=== PATIENT | male | born 1965 | race Caucasian/White ===

== ENCOUNTER 2017-09-01 16:59 | Emergency (ER) | payer OTHER ==
[~2017-09-01] VITALS: Ht 177.8 cm; Wt 84.0 kg
[2017-09-01 17:02] VITALS: BP 142/81; PULSE 92; RESP 16; TEMP 97.9; O2SAT 97
[2017-09-01] MEDS ORDERED: KETOROLAC TROMETHAMINE 60 MG/2 ML (IM) VIAL IM ONE (17:30)
--- NOTE | 2017-09-01 17:47 | PD ---
HPI Chief Complaint: Injury Time Seen by Provider: 16:00 Travel History International Travel<30 days: No Contact w/Intl Traveler<30days: No Traveled to known affect area: No History of Present Illness HPI 52 year old male here with left shoulder pain 2 weeks. He cannot recall specific injury. 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 He reports the pain in the anterior portion of the shoulder worse with range of motion. Pain is relieved by holding the shoulder immobilized against chest. He denies chest pain, shortness breath, paresthesia or weakness of the extremity. Pain severity is moderate. PFSH Past Medical History Medical History: Denies Significant Hx Hx Anticoagulant Therapy: No Diabetes: No Influenza Vaccination: No Social History Alcohol Use: Yes (ONE BEER A DAY) Tobacco Use: Yes (1.5 PPD) Substance Use: No Allergies-Medications (Allergen,Severity, Reaction): Coded Allergies: No Known Allergies (Unverified , 09/01/17) Reported Meds & Prescriptions Reported Meds & Active Scripts Active No Active Prescriptions or Reported Medications Review of Systems Except as stated in HPI: all other systems reviewed are Neg General / Constitutional: No: Fever Eyes: No: Visual changes HENT: No: Headaches Cardiovascular: No: Chest Pain or Discomfort Respiratory: No: Shortness of Breath Gastrointestinal: No: Abdominal Pain Genitourinary: No: Dysuria Neurologic: No: Weakness Physical Exam Narrative GENERAL: Alert male. crying out in pain when he moves the left upper extremity. SKIN: Warm and dry. HEAD: Normocephalic. EYES: No scleral icterus. No injection or drainage. NECK: Supple, trachea midline. No JVD or lymphadenopathy. CARDIOVASCULAR: Regular rate and rhythm without murmurs, gallops, or rubs. RESPIRATORY: Breath sounds equal bilaterally. No accessory muscle use. GASTROINTESTINAL: Abdomen soft, non-tender, nondistended. MUSCULOSKELETAL: No cyanosis, or edema. Left shoulder: Acutely tender to even light palpation of the shoulder. No deformity noted. Arm is held in light flexion against the chest. Limited range of motion due to pain in the shoulder. 2+ distal pulses. Normal sensation. Brisk cap refill. BACK: Nontender without obvious deformity. No CVA tenderness. Data Data Last Documented VS Vital Signs Date Time Temp Pulse Resp B/P (MAP) Pulse Ox O2 Delivery O2 Flow Rate FiO2 09/01/17 18:00 97 09/01/17 17:55 97 16 09/01/17 17:02 97.9 Orders Orders Ketorolac Inj (Toradol Inj) (09/01/17 17:30) Shoulder, Limited(2vws) (09/01/17 ) Electrocardiogram (09/01/17 17:48) Basic Metabolic Panel (Bmp) (09/01/17 17:48) Ckmb (Isoenzyme) Profile (09/01/17 17:48) Complete Blood Count With Diff (09/01/17 17:48) Magnesium (Mg) (09/01/17 17:48) Prothrombin Time / Inr (Pt) (09/01/17 17:48) Act Partial Throm Time (Ptt) (09/01/17 17:48) Troponin I (09/01/17 17:48) Chest, Single Ap (09/01/17 17:48) Ecg Monitoring (09/01/17 17:48) Bilateral Bp Monitoring (09/01/17 17:48) Iv Access Insert/Monitor (09/01/17 17:48) Oximetry (09/01/17 17:48) Oxygen Administration (09/01/17 17:48) Sodium Chloride 0.9% Flush (Ns Flush) (09/01/17 18:00) Ondansetron Inj (Zofran Inj) (09/01/17 18:00) CKMB (09/01/17 17:55) CKMB% (09/01/17 17:55) Labs Laboratory Tests Test 09/01/17 17:55 White Blood Count 16.9 TH/MM3 Red Blood Count 5.03 MIL/MM3 Hemoglobin 15.4 GM/DL Hematocrit 46.0 % Mean Corpuscular Volume 91.5 FL Mean Corpuscular Hemoglobin 30.7 PG Mean Corpuscular Hemoglobin Concent 33.5 % Red Cell Distribution Width 12.8 % Platelet Count 302 TH/MM3 Mean Platelet Volume 7.5 FL Neutrophils (%) (Auto) 74.4 % Lymphocytes (%) (Auto) 17.8 % Monocytes (%) (Auto) 4.2 % Eosinophils (%) (Auto) 2.3 % Basophils (%) (Auto) 1.3 % Neutrophils # (Auto) 12.6 TH/MM3 Lymphocytes # (Auto) 3.0 TH/MM3 Monocytes # (Auto) 0.7 TH/MM3 Eosinophils # (Auto) 0.4 TH/MM3 Basophils # (Auto) 0.2 TH/MM3 CBC Comment AUTO DIFF Differential Comment AUTO DIFF CONFIRMED Prothrombin Time 10.0 SEC Prothromb Time International Ratio 0.9 RATIO Activated Partial Thromboplast Time 26.3 SEC Blood Urea Nitrogen 16 MG/DL Creatinine 1.10 MG/DL Random Glucose 103 MG/DL Calcium Level 8.7 MG/DL Magnesium Level 2.2 MG/DL Sodium Level 139 MEQ/L Potassium Level 3.6 MEQ/L Chloride Level 104 MEQ/L Carbon Dioxide Level 28.2 MEQ/L Anion Gap 7 MEQ/L Estimat Glomerular Filtration Rate 71 ML/MIN Total Creatine Kinase 112 U/L Creatine Kinase MB 0.9 NG/ML Troponin I LESS THAN 0.02 NG/ML MDM Medical Decision Making Medical Screen Exam Complete: Yes Emergency Medical Condition: Yes Interpretation(s) EKG: Sinus rhythm rate of [address] elevation or depression CBC: Unremarkable with the exception of WBC 16.9 BMP: Unremarkable Troponin: 0.2 Chest x-ray: No abnormality Shoulder x-ray: No fracture or dislocation Differential Diagnosis Rotator cuff injury, shoulder strain, ACS although unlikely, vasovagal response Narrative Course 52-year-old male here with nontraumatic left shoulder pain and 2 weeks. 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 He is acutely tender within the left shoulder is palpated even with light touch. Patient was originally evaluated and sent for x -ray of the shoulder. When he received a shot of Toradol shortly after he became diaphoretic, short of breath and vomited twice. He reports that he has had similar episodes including syncope after getting blood work. Patient denies history of hypertension, dyslipidemia, diabetes, previous NV or history of coronary artery disease. He denies family history of NV in anyone less than 50. Patient is a smoker. I believe this is was a vasovagal response. After this episode he was placed on continuous cardiac monitoring, EKG, cardiac enzymes, chest x-ray ordered. Lab work was reviewed. EKG showed sinus rhythm rate of [address] elevation or depression. Cardiac enzymes were negative. Chest x-ray with no abnormalities. Patient was reexamined. He is reporting symptom improvement at this time and requesting discharge. He will be put in a splint and sling for suspected rotator cuff injury and instructed to follow-up with orthopedic doctor. Patient agrees to this plan. Diagnosis Primary Impression: Rotator cuff injury Qualified Codes: S46.002A - Unspecified injury of muscle(s) and tendon(s) of the rotator cuff of left shoulder, initial encounter Referrals: Orthopedist Additional Instructions: Wear the sling as directed. Avoid heavy lifting or strenuous activity. Take the Motrin as needed for pain. Take the muscle relaxers as needed for muscle spasm. Make an appointment for follow-up with the orthopedic doctor. Return to emergency department if he developed new or worsening symptoms Scripts Methocarbamol (Robaxin) 500 Mg Tab 500 MG PO TID for Muscle Spasm, #15 TAB 0 Refills Prov: Chen Elliott 09/01/17 Ibuprofen (Ibuprofen) 800 Mg Tab 800 MG PO Q6HR Y for PAIN, #30 TAB 0 Refills Prov: Chen Elliott 09/01/17 Disposition: 01 DISCHARGE HOME Condition: Stable Chen Elliott Sep 01, 2017 17:47
--- NOTE | 2017-09-01 17:51 | RADRPT ---
EXAM DATE/TIME: 09/01/2017 17:29 [facility] COMPARISON: No previous studies available for comparison. INDICATIONS : Left shoulder pain MEDICAL HISTORY : None. SURGICAL HISTORY : None. ENCOUNTER: Initial ACUITY: 2 days PAIN SCORE: 10/10 LOCATION: Left lateral shoulder. FINDINGS: Two view examination of the left shoulder demonstrates no evidence of fracture or dislocation. The g lenohumeral and acromioclavicular joints are maintained. Bony mineralization is normal. CONCLUSION: Unremarkable limited examination of the left shoulder. Harlan Palmer MD on September 01, 2017 at 17:49 Board Certified Radiologist. This report was verified electronically.
[2017-09-01 17:55] VITALS: BP 140/86; PULSE 97; RESP 16; O2SAT 97
[2017-09-01 18:00] VITALS: O2SAT 97
[2017-09-01] MEDS ORDERED: ONDANSETRON HCL 4 MG/2 ML VIAL IV PUSH ONE (18:00)
[2017-09-01] MEDS ORDERED: SODIUM CHLORIDE 0.9% FLUSH 10 ML FLUSH IVF PRN (18:00)
[2017-09-01 18:13] LABS: AUTOMATED NEUTROPHIL # 12.6 TH/MM3 (1.8-7.7); BASOPHIL # 0.2 TH/MM3 (0-0.2); BASOPHIL % 1.3 % (0.0-2.0); EOSINOPHIL # 0.4 TH/MM3 (0-0.4); EOSINOPHIL % 2.3 % (0.0-4.0); LYMPH % 17.8 % (9.0-44.0); MEAN CELL VOLUME 91.5 FL (80.0-100.0); MEAN CORPUSCULAR HEMOGLOBIN 30.7 PG (27.0-34.0); MEAN CORPUSCULAR HGB CONC 33.5 % (32.0-36.0); MONO % 4.2 % (0.0-8.0); NEUT % 74.4 % (16.0-70.0); PLATELET COUNT 302 TH/MM3 (150-450); RED BLOOD COUNT 5.03 MIL/MM3 (4.50-5.90); RED CELL DISTRIBUTION WIDTH 12.8 % (11.6-17.2); WHITE BLOOD COUNT 16.9 TH/MM3 (4.0-11.0)
[2017-09-01 18:22] LABS: CHLORIDE 104 MEQ/L (98-107); POTASSIUM 3.6 MEQ/L (3.5-5.1); SODIUM (NA) 139 MEQ/L (136-145)
[2017-09-01 18:25] LABS: ANION GAP 7 MEQ/L (5-15); APTT (PATIENT) 26.3 SEC (24.3-30.1); BICARBONATE 28.2 MEQ/L (21.0-32.0); BLOOD UREA NITROGEN 16 MG/DL (7-18); INTERNATIONAL NORMALIZED RATIO 0.9 RATIO; MAGNESIUM 2.2 MG/DL (1.5-2.5)
[2017-09-01 18:28] LABS: GLOMERULAR FILTRATION RATE 71 ML/MIN (>89)
[2017-09-01 18:31] LABS: CREATINE KINASE 112 U/L (39-308)
[2017-09-01 18:32] LABS: HEMO FLAGS AUTO DIFF
[2017-09-01 18:45] LABS: CKMB 0.9 NG/ML (0.5-3.6)
--- NOTE | 2017-09-01 19:00 | RADRPT ---
EXAM DATE/TIME: 09/01/2017 18:22 [facility] COMPARISON: No previous studies available for comparison. INDICATIONS : Near syncopal episode. MEDICAL HISTORY : None. SURGICAL HISTORY : None. ENCOUNTER: Initial ACUITY: 1 day PAIN SCORE: 0/10 LOCATION: Bilateral chest FINDINGS: A single view of the chest demonstrates the lungs to be symmetrically aerated without evidence of mas s, infiltrate or effusion. The cardiomediastinal contours are unremarkable. Osseous structures are intact. CONCLUSION: Normal examination. Hero Hagan MD on September 01, 2017 at 18:58 Board Certified Radiologist. This report was verified electronically.
[2017-09-01 19:10] LABS: SCAN/DIFF AUTO DIFF CONFIRMED
[2017-09-01] MEDS ORDERED: ROBA500T PO (19:18)
[2017-09-01] MEDS ORDERED: IBUP1TAB7 PO (19:18)
[2017-09-01 19:55] VITALS: BP 153/87
--- NOTE | 2017-09-02 16:03 | EKG ---
Date Performed: 09/01/2017 Time Performed: 17:58:30 PTAGE: 52 years EKG: Sinus rhythm NORMAL ECG NO PREVIOUS TRACING DOCTOR: Maranda Sneed Interpretating Date/Time 09/02/2017 16:03:02
== END 2017-09-01 20:03 | disposition home or self-care (01) ==
LOC: PHEFT 16:59 → PHED 20:03
DX: S46.002A Unspecified injury of muscle(s) and tendon(s) of the rotator cuff of left shoulder, initial encounter (principal); R06.02 Shortness of breath; R55 Syncope and collapse; X58.XXXA Exposure to other specified factors, initial encounter; Z72.0 Tobacco use
CPT/HCPCS: 71010; 73030; 80048; 82550; 82552; 83735; 84484; 85025; 85610; 85730; 93005; 96372; 99285; J1885